=== PATIENT | male | born 1990 ===

== ENCOUNTER 2018-01-06 08:31 | Emergency (ER) | payer OTHER ==
[~2018-01-06] VITALS: Ht 172.7 cm; Wt 79.0 kg
[2018-01-06 08:35] VITALS: BP 125/85
[2018-01-06] MEDS ORDERED: LIDOCAINE HCL 1% 20ML VIAL (Pyxis) INJ INFIL ONE (09:30)
[2018-01-06] MEDS ORDERED: LIDOCAINE HCL 1% 10 MG/ML 10ML VIAL IJ NR (09:48)
[2018-01-06] MEDS ORDERED: BACITRACIN ZINC OINT UDPKT TOP ONE (10:30)
== END 2018-01-06 10:40 | disposition home or self-care (01) ==
LOC: ER 08:31
DX: S61.212A Laceration without foreign body of right middle finger without damage to nail, initial encounter (principal); W22.8XXA Striking against or struck by other objects, initial encounter; J45.909 Unspecified asthma, uncomplicated; Y93.89 Activity, other specified; Y92.89 Other specified places as the place of occurrence of the external cause; Y99.8 Other external cause status
CPT/HCPCS: 12001; 99283; J3490; Z7610; 12002